=== PATIENT | male | born 1960 | race Caucasian/White ===

== ENCOUNTER 2024-11-08 08:50 | Emergency (ER) | payer BC, OTHER ==
[2024-11-08 10:32] LABS: #Basophils 0.03 10x3/uL (0.0-0.2); #Eosinophils 0.17 10x3/uL (0.0-0.7); #Monocytes 0.54 10x3/uL (0.11-0.59); #Neutrophils 4.62 10x3/uL (1.40-6.50); %Basophils 0.5 % (0.0-1.0); %Eosinophils 2.6 % (0.0-10.0); %Lymphocytes 17.0 % (21.0-51.0); %Monocytes 8.3 % (0.0-10.0); %Neutrophils 71.4 % (42.0-75.0); Hematocrit 42.7 % (42.0-52.0); Hemoglobin 14.0 g/dL (14.0-18.0); Mean Corpuscular Hemoglobin 29.3 pg (27.0-31.0); Mean Corpuscular Volume 89.3 fL (78.0-98.0); Platelet Count 167 10x3/uL (130-400); Red Blood Cell (RBC) Count 4.78 mill/uL (4.70-6.10); White Blood Cell (WBC) Count 6.47 10x3/uL (4.8-10.8)
[2024-11-08 11:29] LABS: Albumin 3.8 g/dL (3.1-4.5); Chloride 104 mmol/L (98-107); Potassium 4.4 mmol/L (3.5-5.1); Sodium 140 mmol/L (136-145)
[2024-11-08 11:30] LABS: Calcium 9.1 mg/dL (7.8-10.44); Globulin 3.2 g/dL (2.4-3.5); Glucose 96 mg/dL (80-115)
[2024-11-08 11:32] LABS: Anion Gap 14 mmol/L (10-20); Carbon Dioxide 26 mmol/L (23-31)
[2024-11-08 11:33] LABS: Alkaline Phosphatase 93 U/L (40-110); Bilirubin, Total 0.7 mg/dL (0.3-1.2)
[2024-11-08 11:34] LABS: BUN (Urea Nitrogen) 22 mg/dL (8.4-25.7); Calc. Creatinine Clearance 0 mL/min (70-130)
[2024-11-08 11:36] LABS: ALT (SGPT) 26 U/L (Less than 45); AST (SGOT) 28 U/L (11-34)
== END 2024-11-08 11:19 | disposition home or self-care (01) ==
LOC: ERS 08:50
DX: K62.5 Hemorrhage of anus and rectum (principal); I10 Essential (primary) hypertension
CPT/HCPCS: 80053; 82274; 85025; 99283